=== PATIENT | female | born 1980 | race African-American/Black ===

== ENCOUNTER 2019-09-16 14:35 | Emergency (ER) | payer BC, SELFPAY ==
--- NOTE | ~2019-09-16 | CT_ITS ---
EXAMINATION: CT abdomen pelvis wo con DATE: 09/16/2019 15:36 INDICATION: Left lower quadrant abdominal pain. TECHNIQUE: Computed tomography (CT) of the abdomen and pelvis was performed without intravenous contr ast. Automated exposure control and iterative reconstruction technique were employed. The dose-length product was 1326.60 mGy-cm. COMPARISON: None. FINDINGS: The visualized portions of the lung bases demonstrate mild atelectasis on the left. No pleu ral effusion. The heart size is normal. No pericardial effusion. The liver, gallbladder, spleen, panc reas, adrenal glands, and right kidney are normal. There is a 9 mm stone in left kidney. There is div erticulosis of the colon without evidence of diverticulitis. The appendix is normal. There are no dil ated loops of bowel. There is an umbilical hernia containing fat. There are no pathologically enlarge d lymph nodes. There is no free intraperitoneal fluid. There is mild lumbar spondylosis. IMPRESSION: 1. 9 mm nonobstructing left kidney stone. 2. Umbilical hernia containing fat. Reviewed, dictated and finalized at location A.
[2019-09-16 14:37] VITALS: BP 153/95; PULSE 78; RESP 18; TEMP 36.4; O2SAT 99
[2019-09-16 15:01] LABS: Basophils Percent Auto 0.4 % (0.2-1.2); Eosinophils Absolute Auto 0.1 K/mm3 (0-0.3); Eosinophils Percent Auto 1.5 % (0-4.4); Hematocrit 38.6 % (37.0-47.0); Hemoglobin 12.1 g/dL (12.0-15.0); Immature Granulocyte Absolute 0.04 K/mm3 (0.00-0.031); Immature Granulocyte Percent A 0.5 % (0-0.5); Lymphocytes Absolute Auto 2.67 K/mm3 (0.9-3.2); Lymphocytes Percent Auto 33.9 % (18.3-44.2); Mean Corpuscular HGB Conc 31.3 g/dl (32-36); Mean Corpuscular Hemoglobin 25.2 pg (26-34); Mean Corpuscular Volume 80.2 fl (80-100); Mean Platelet Volume 9.8 fl (7.4-10.4); Monocytes Absolute Auto 0.5 K/mm3 (0.1-0.6); Monocytes Percent Auto 5.7 % (2.6-8.5); Neutrophils Absolute Auto 4.6 K/mm3 (1.3-6.7); Platelet Count Result 350 k/mm3 (150-375); Red Blood Count 4.81 M/mm3 (4.2-5.4); Red Cell Distribution Width 15.4 % (11.5-14.5); White Blood Count 7.9 K/mm3 (4.5-10.0)
[2019-09-16 15:04] VITALS: BP 143/87; PULSE 84; RESP 19; O2SAT 97
[2019-09-16 15:05] LABS: Add Urine Microscopic? YES; Appearance Urine Clear (Clear); Bacteria Urine Trace /hpf; Bilirubin Urine Negative (Negative); Blood Urine Negative (Negative); Color Urine Yellow (Yellow); Glucose Urine UA Negative (Negative); Ketones Urine Trace mg/dL (Negative); Leukocyte Esterase Ur Negative LEU/UL (Negative); Mucus Urine Moderate /lpf; Nitrate Urine Negative (Negative); Protein Urine 1+ mg/dL (Negative); RBC Urine >75 /hpf (0-2); Specific Grav Ur 1.025 (1.001-1.035); Squamous Epithelial Cell Urine Many /hpf (Few); Urobilinogen Urine Negative mg/dL (<2.0)
[2019-09-16 15:11] LABS: Alanine Aminotransferase 14 U/L (4-35); Albumin Level 3.9 g/dL (3.5-5.1); Alkaline Phosphatase 86 U/L (38-126); Aspartate Amino Transferase 20 U/L (14-36); Bilirubin,Total 0.3 mg/dL (0.2-1.3); Blood Urea Nitrogen 9 mg/dL (7-17); Calcium 9.3 mg/dL (8.4-10.2); Carbon Dioxide 26 mmol/L (22-30); Chloride 104 mmol/L (98-107); Estimated CRCL calculation 107 ml/min; Estimated Glomerular Filt Rate > 60; Glucose 147 mg/dL (65-105); Lipase 57 U/L (23-300); Potassium 3.4 mmol/L (3.4-5.0); Sodium 136 mmol/L (137-145)
--- NOTE | 2019-09-16 15:14 | ED.ABDPAIN ---
HPI - Abdominal Pain General Chief Complaint: Abdominal Pain Stated Complaint: abd pain Time Seen by Provider: 09/16/19 14:39 Source: patient Mode of arrival: ambulatory Limitations: no limitations History of Present Illness HPI narrative: Patient is a 39-year-old female who presents to emergency department for evaluation of left-sided flank pain began acutely today notes that she has some loose stools yesterday but otherwise had felt fine patient today notes that the pain began as a sharp stabbing pain noting that she had had a kidney stone and the pain is somewhat similar notes some nausea denies vomiting denies hematuria denies diarrhea currently. Patient presents per private vehicle mild pain distress has not taken anything for her symptoms at this time Related Data Home Medications Medication Instructions Recorded Confirmed amlodipine 07/04/19 cetirizine 10 mg PO DAILY 07/04/19 chlorthalidone 07/04/19 fluticasone propionate [Flovent INHALATION 07/04/19 HFA] montelukast mg 07/04/19 promethazine-DM ml 07/04/19 Allergies Allergy/AdvReac Type Severity Reaction Status Date / Time gabapentin AdvReac Nausea Verified 07/04/19 17:19 Review of Systems Review of Systems: All systems reviewed & are unremarkable except as noted in HPI and below PMFSH Social History Social History Smoking status: Never smoker Alcohol intake: never Substance use: never Gender identity (if verbalized by the patient): Female Exam Narrative: Exam Narrative: GENERAL: Well-appearing, obese, and in no acute distress. HEAD: Normocephalic, atraumatic. EYES: PERRLA and EOMI. ENT: Nares clear, no rhinorrhea or epistaxis. Mucous membranes moist. Oropharynx without tonsillar hypertrophy exudate or other lesions. CHEST: Clear to auscultation. No respiratory distress. No wheezes rales or rhonchi HEART: Regular rate and rhythm. No murmur heard. Normal peripheral pulses. ABDOMEN: Soft, left lower quadrant abdominal tenderness to palpation, nondistended. EXTREMITIES: Normal range of motion. No edema. SKIN: Warm, dry, no rash. NEURO: No focal deficits. Alert and oriented x3. PSYCH: Normal mood and affect. Course Course Emergency Course: Patient in the room aware of case findings treatment plan and diagnosis agreeing to follow-up as directed or to return if symptoms worsen or concerns Vital Signs Vital signs: Vital Signs Temperature 97.5 F L 09/16/19 14:37 Pulse Rate 78 09/16/19 14:37 Respiratory Rate 18 09/16/19 14:37 Blood Pressure 153/95 H 09/16/19 14:37 Pulse Oximetry 99 09/16/19 14:37 Temperature 97.5 F L 09/16/19 14:37 Pulse Rate 84 09/16/19 15:04 Respiratory Rate 19 09/16/19 15:04 Blood Pressure 143/87 H 09/16/19 15:04 Pulse Oximetry 97 09/16/19 15:04 MDM - Abdominal Pain MDM Narrative Medical decision making narrative: Patient with likely passed kidney stone no other high risk changes in the blood work or imaging felt appropriate for outpatient reevaluation pain well-controlled afebrile nontoxic-appearing without emesis will be provided with urology referral Lab Data Result diagrams: 09/16/19 14:51 09/16/19 14:51 Labs: Lab Results 09/16/19 09/16/19 09/16/19 Range/Units 14:51 14:51 14:51 WBC 7.9 (4.5-10.0) K/mm3 RBC 4.81 (4.2-5.4) M/mm3 Hgb 12.1 (12.0-15.0) g/dL Hct 38.6 (37.0-47.0) % MCV 80.2 (80-100) fl MCH 25.2 L (26-34) pg MCHC 31.3 L (32-36) g/dl RDW 15.4 H (11.5-14.5) % Plt Count 350 (150-375) k/mm3 MPV 9.8 (7.4-10.4) fl Immature Gran % (Auto) 0.5 (0-0.5) % Neut % (Auto) 58.0 (45.5-73.1) % Lymph % (Auto) 33.9 (18.3-44.2) % Webb % (Auto) 5.7 (2.6-8.5) % Eos % (Auto) 1.5 (0-4.4) % Baso % (Auto) 0.4 (0.2-1.2) % Lymph # (Auto) 2.67 (0.9-3.2) K/mm3 Webb # (Auto) 0.5 (0.1-0.6) K/mm3 Eos # (Auto)
[2019-09-16] MEDS: ONDANSETRON INJ 4 MG/2 ML VIAL IV PUSH (15:31)
[2019-09-16] MEDS: FAMOTIDINE 20 MG/2 ML VIAL IV PUSH (15:31)
[2019-09-16] MEDS: SODIUM CHLORIDE 0.9% IV 1,000 ML 999 ML IV CONT (15:31)
[2019-09-16 16:18] VITALS: BP 154/99; PULSE 70; RESP 22; O2SAT 98
[2019-09-16] MEDS: KETOROLAC 30 MG/ML VIAL (*BKC) IV PUSH (16:18)
[2019-09-16 16:41] VITALS: BP 154/99; PULSE 70; RESP 18; O2SAT 100
--- NOTE | 2019-09-20 12:59 | PC.NURSE ---
LATE ENTRY This note is being entered to document information to the patient's record. The following information was omitted on [09/16/19], by [ghazala galeana]. ns start 1531 end 1943
== END 2019-09-16 16:41 | disposition home or self-care (01) ==
PROVIDERS: Emergency Medicine Emergency Medical Services; Emergency Provider Emergency Medicine
DX: R10.9 Unspecified abdominal pain (principal); N20.0 Calculus of kidney; K42.9 Umbilical hernia without obstruction or gangrene
CPT/HCPCS: 36415; 74176; 80053; 81001; 83690; 85025; 96361; 96374; 96375; 99284; J0131; J1885; J2405; J7030

== ENCOUNTER 2019-11-02 22:44 | Emergency (ER) | payer BC, SELFPAY ==
--- NOTE | ~2019-11-02 | XR_ITS ---
EXAMINATION: XR chest 2V EXAM DATE: 11/02/2019 23:34 INDICATION: Mid chest pain. TECHNIQUE: Frontal and lateral projections of the chest obtained and reviewed. There is no prior ban dy for comparison. FINDINGS: The lungs are clear. There are no pleural effusions. The cardiomediastinal silhouette is within normal limits. There is no pneumothorax suspected. The bones and soft tissues are unremarkab le. IMPRESSION: Normal chest x-ray exam. Reviewed, dictated and finalized at location G. IMPRESSION: Normal chest x-ray exam.
[2019-11-02 22:50] VITALS: BP 150/96; PULSE 73; RESP 20; O2SAT 97
[2019-11-02 22:55] VITALS: BP 150/96; PULSE 75; RESP 19; TEMP 36.8; O2SAT 97
--- NOTE | 2019-11-02 23:03 | ECG_ITS ---
Measurements Intervals [place] Rate: 70 P: 39 HI: 164 QRS: 24 QRSD: 98 T: 31 QT: 379 QTc: 410 Interpretive Statements SINUS RHYTHM MINIMAL Q WAVES- INFERIOR LEADS BASELINE ARTIFACT- I, III, AVL BORDERLINE ECG Electronically Signed On 11-03-2019 7:13:19 CDT by Rudy Cristina D.O.
[2019-11-02 23:15] VITALS: BP 147/91; PULSE 72; RESP 19; O2SAT 97
[2019-11-02] MEDS: ASPIRIN 81 MG CHEWABLE TABLET 324 MG PO (23:24)
[2019-11-02 23:33] LABS: Basophils Absolute Auto 0.1 K/mm3 (0.0-0.1); Basophils Percent Auto 0.6 % (0.2-1.2); Eosinophils Absolute Auto 0.2 K/mm3 (0-0.3); Eosinophils Percent Auto 2.6 % (0-4.4); Hematocrit 39.8 % (37.0-47.0); Hemoglobin 12.4 g/dL (12.0-15.0); Immature Granulocyte Absolute 0.02 K/mm3 (0.00-0.031); Immature Granulocyte Percent A 0.3 % (0-0.5); Lymphocytes Percent Auto 45.2 % (18.3-44.2); Mean Corpuscular HGB Conc 31.2 g/dl (32-36); Mean Corpuscular Hemoglobin 25.3 pg (26-34); Mean Corpuscular Volume 81.2 fl (80-100); Mean Platelet Volume 10.5 fl (7.4-10.4); Monocytes Absolute Auto 0.8 K/mm3 (0.1-0.6); Monocytes Percent Auto 9.5 % (2.6-8.5); Neutrophils Absolute Auto 3.3 K/mm3 (1.3-6.7); Neutrophils Percent Auto 41.8 % (45.5-73.1); Platelet Count Result 330 k/mm3 (150-375); Red Cell Distribution Width 15.5 % (11.5-14.5)
[2019-11-02] MEDS: KETOROLAC 30 MG/ML VIAL (*BKC) IV PUSH (23:42)
[2019-11-02 23:44] LABS: INR 0.9; Prothrombin Time 12.2 Seconds (11.1-14.7)
[2019-11-02 23:45] LABS: Partial Thromboplastin Time 27.6 SECONDS (22.3-36.8)
[2019-11-02 23:46] LABS: Blood Urea Nitrogen 11 mg/dL (7-17); Carbon Dioxide 25 mmol/L (22-30); Chloride 107 mmol/L (98-107); Estimated Glomerular Filt Rate > 60; Glucose 104 mg/dL (65-105); Potassium 3.3 mmol/L (3.4-5.0); Sodium 139 mmol/L (137-145)
[2019-11-02 23:58] LABS: Troponin I < 0.012 ng/mL (0.000-0.034)
[2019-11-03] VITALS: BP 154/88; PULSE 77; RESP 21; O2SAT 96
[2019-11-03 00:15] VITALS: BP 158/90; PULSE 68; RESP 15; O2SAT 99
[2019-11-03 00:30] VITALS: BP 154/97; PULSE 69; RESP 22; O2SAT 98
--- NOTE | 2019-11-03 00:31 | ED.CHESTPAIN ---
HPI - Chest Pain General Chief Complaint: Chest Pain Stated Complaint: chest pain Time Seen by Provider: 11/02/19 23:07 History of Present Illness HPI narrative: Patient is a 39-year-old female who presents ER with left-sided chest pain. Up high on her chest and worse with palpation. Was sudden onset and sharp. It was associated with shortness of breath. Patient used her inhaler and shortness of breath dissipated. Pain is nonradiating. No nausea/vomiting. Also associated with mild left-sided headache and some eye discomfort. No eye swelling. No trauma to the eye. Patient reports mild haziness in her left peripheral vision in the left eye but no loss of vision. No floaters or flashers. No history of glaucoma. Patient reports a father who has had an UT in his 40s in the past. No history of blood clots. No recent travel. No hemoptysis. Related Data Home Medications Medication Instructions Recorded Confirmed amlodipine 07/04/19 cetirizine 10 mg PO DAILY 07/04/19 chlorthalidone 07/04/19 fluticasone propionate [Flovent INHALATION 07/04/19 HFA] montelukast mg 07/04/19 promethazine-DM ml 07/04/19 Allergies Allergy/AdvReac Type Severity Reaction Status Date / Time gabapentin AdvReac Nausea Verified 11/02/19 22:54 Review of Systems Review of Systems: All systems reviewed & are unremarkable except as noted in HPI and below Constitutional: Constitutional: Denies chills, Denies fever(s) and Denies weakness Eyes: Eyes: Reports change in vision and Denies photophobia ENT: Denies nasal congestion and Denies sore throat Cardiovascular: Cardiovascular: Reports chest pain and Denies radiating jaw, neck or arm pain Respiratory: Respiratory: Denies cough, Reports dyspnea and Denies wheezing Gastrointestinal: Gastrointestinal: Denies abdominal pain, Denies nausea and Denies vomiting [facility] Past Medical History Medical History (Updated 11/03/19 @ 05:30 by Renaldo Kilgore MD) Asthma Hypertension Surgical History Surgical History (Updated 11/03/19 @ 00:33 by Renaldo Kilgore MD) No pertinent past surgical history Social History Social History Smoking status: Never smoker Alcohol intake: never Substance use: never Gender identity (if verbalized by the patient): Female Exam Narrative: Exam Narrative: GENERAL: Well-appearing, well-nourished, and in no acute distress. HEAD: Normocephalic, atraumatic. ENT: Mucous membranes moist. NECK: Supple. CHEST: Clear to auscultation. No respiratory distress. Very tender to light palpation in the left upper chest wall near the clavicle. HEART: Regular rate and rhythm. Normal peripheral pulses. ABDOMEN: Soft, nontender, nondistended, normal active bowel sounds. EXTREMITIES: Normal range of motion. No edema. NEURO: Alert and oriented x3. PSYCH: Normal mood and affect. Course Course Emergency Course: Patient informed of results. Headache resolved with Toradol and visual issues resolved as well. Vital Signs Vital signs: Vital Signs Pulse Rate 73 11/02/19 22:50 Respiratory Rate 20 11/02/19 22:50 Blood Pressure 150/96 H 11/02/19 22:50 Pulse Oximetry 97 11/02/19 22:50 Temperature 98.3 F 11/02/19 22:55 Pulse Rate 69 11/03/19 00:30 Respiratory Rate 22 H 11/03/19 00:30 Blood Pressure 154/97 H 11/03/19 00:30 Pulse Oximetry 98 11/03/19 00:30 MDM - Chest Pain Lab Data Result diagrams: 11/02/19 23:00 11/02/19 23:00 Labs: Lab Results 11/02/19 11/02/19 11/02/19 Range/Units 23:00 23:00 23:00 WBC 8.0 (4.5-10.0) K/mm3 RBC 4.90 (4.2-5.4) M/mm3 Hgb 12.4 (12.0-15.0) g/dL Hct 39.8 (37.0-47.0) % MCV 81.2 (80-100) fl MCH 25.3 L (26-34) pg MCHC 31.2 L (32-36) g/dl RDW 15.5 H (11.5-14.5) % Plt Count 330 (150-375) k/mm3 MPV 10.5 H (7.4-10.4) fl Immature Gran % (Auto) 0.3 (0-
[2019-11-03 00:51] LABS: D Dimer 0.29 ug/mL (<0.48)
== END 2019-11-03 01:30 | disposition home or self-care (01) ==
PROVIDERS: Emergency Provider Emergency Medicine; PCP Family Medicine
DX: R07.89 Other chest pain (principal); R51 Headache; I10 Essential (primary) hypertension; J45.909 Unspecified asthma, uncomplicated; R94.31 Abnormal electrocardiogram [ECG] [EKG]
CPT/HCPCS: 36415; 71046; 80048; 84484; 85025; 85380; 85610; 85730; 93005; 96374; 99284; A9270; J1885